=== PATIENT | female | born 1990 | race Caucasian/White ===

== ENCOUNTER 2020-08-07 07:18 | Emergency (ER) | payer BC ==
[~2020-08-07] VITALS: Ht 167.6 cm; Wt 54.5 kg
[2020-08-07] MEDS ORDERED: TOPI25 PO (07:25)
[2020-08-07] MEDS ORDERED: CITA-144 PO (07:25)
[2020-08-07] MEDS ORDERED: KETOROLAC TROMETHAMINE 30 MG/ML VIAL IVP ONE (07:30)
[2020-08-07] MEDS ORDERED: METOCLOPRAMIDE HCL 5 MG/ML 2 ML VIAL IVP ONE (07:30)
[2020-08-07] MEDS ORDERED: DiphenhydrAMINE HCL 50 MG/ML VIAL IVP ONE (07:30)
[2020-08-07] MEDS ORDERED: SODIUM CHLORIDE 0.9% 1,000 ML IV ONE (07:30)
[2020-08-07 08:38] VITALS: BP 126/75
== END 2020-08-07 09:00 | disposition home or self-care (01) ==
LOC: EMS 07:18
DX: U07.1 COVID-19 (principal); G43.909 Migraine, unspecified, not intractable, without status migrainosus; F41.9 Anxiety disorder, unspecified; F32.9 Major depressive disorder, single episode, unspecified; F12.90 Cannabis use, unspecified, uncomplicated; Z79.899 Other long term (current) drug therapy
CPT/HCPCS: 96361; 96374; 96375; 99284; J1200; J1885; J2765; J7030

== ENCOUNTER 2020-10-15 05:33 | Emergency (ER) | payer BC, MEDICARE ==
[~2020-10-15] VITALS: Ht 170.2 cm; Wt 59.1 kg
[~2020-10-15 05:33] MED LIST: CITA-144 PO; TOPI25 PO
[2020-10-15] MEDS ORDERED: ONDANSETRON HCL 4 MG/2 ML VIAL IVP ONE (06:15)
[2020-10-15] MEDS ORDERED: SODIUM CHLORIDE 0.9% 1,000 ML IV ONE (06:15)
[2020-10-15] MEDS ORDERED: KETOROLAC TROMETHAMINE 30 MG/ML VIAL IVP ONE (06:30)
[2020-10-15 07:09] VITALS: BP 124/71
== END 2020-10-15 08:13 | disposition home or self-care (01) ==
LOC: EMS 05:33
DX: G43.909 Migraine, unspecified, not intractable, without status migrainosus (principal); F41.9 Anxiety disorder, unspecified; F32.9 Major depressive disorder, single episode, unspecified; F12.90 Cannabis use, unspecified, uncomplicated
CPT/HCPCS: 81025; 96361; 96374; 96375; 99284; J1885; J2405; J7030

== ENCOUNTER 2020-12-11 20:36 | Emergency (ER) | payer MEDICARE ==
[~2020-12-11] VITALS: Ht 170.2 cm; Wt 59.1 kg
[2020-12-11] MEDS ORDERED: KETOROLAC TROMETHAMINE 30 MG/ML VIAL IVP ONE (21:45)
[2020-12-11] MEDS ORDERED: METOCLOPRAMIDE HCL 5 MG/ML 2 ML VIAL IVP ONE (21:45)
[2020-12-11] MEDS ORDERED: DiphenhydrAMINE HCL 25 MG CAPSULE PO ONE (21:45)
[2020-12-11] MEDS ORDERED: SODIUM CHLORIDE 0.9% 1,000 ML IV ONE (22:30)
[2020-12-11 23:45] VITALS: BP 115/81
== END 2020-12-12 00:07 | disposition home or self-care (01) ==
LOC: EMS 20:36
DX: G43.909 Migraine, unspecified, not intractable, without status migrainosus (principal); F41.9 Anxiety disorder, unspecified; F12.90 Cannabis use, unspecified, uncomplicated; Z79.899 Other long term (current) drug therapy
CPT/HCPCS: 81025; 96361; 96374; 96375; 99284; J1885; J2765; J7030